=== PATIENT | female | born 1970 | race Two or more races ===

== ENCOUNTER 2021-02-09 16:08 | Emergency (ER) | payer SELFPAY ==
[~2021-02-09] VITALS: Ht 154.9 cm; Wt 71.7 kg
[2021-02-09 16:18] VITALS: BP 150/93
--- NOTE | 2021-02-09 16:26 | NUR ---
SEEN AND EXAMINED BY .
[2021-02-09] MEDS ORDERED: KETOROLAC TROMETHAMINE INJ 30 MG/ML VIAL ONE (16:27)
[2021-02-09] MEDS: KETOROLAC TROMETHAMINE INJ 60 MG/2 ML VIAL IM ONE (16:31)
--- NOTE | 2021-02-09 16:31 | NUR ---
[employer] AT BEDSIDE FOR XRAY.
[2021-02-09] MEDS ORDERED: HYDR-3980 PO (17:25)
[2021-02-09] MEDS ORDERED: CARI350T PO (17:25)
== END 2021-02-09 17:35 | disposition home or self-care (01) ==
LOC: ER 16:10
DX: M54.5 Low back pain (principal); M51.36 Other intervertebral disc degeneration, lumbar region; Z79.899 Other long term (current) drug therapy; V49.49XA Driver injured in collision with other motor vehicles in traffic accident, initial encounter; Y93.89 Activity, other specified; Y92.488 Other paved roadways as the place of occurrence of the external cause; Y99.8 Other external cause status
CPT/HCPCS: 72110; 96372; 99283; J1885